=== PATIENT | female | born 1940 | race Caucasian/White ===

== ENCOUNTER 2018-08-14 17:03 | Emergency (ER) | payer BC ==
[2018-08-14 17:26] VITALS: BP 118/81; PULSE 98; TEMP 97.4; BMI 23.4
--- NOTE | 2018-08-14 17:37 | PDOC ---
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 Pt is accompanied by her daughter and family, who can give information regarding pts baseline. According to the halfway records, the pt fell at 1:30 AM from the bed onto the floor, and the fall was unwitnessed. The pt does not remember the fall. The pts daughter was called at 5:30 AM, and halfway staff allegedly told the pts daughter that a full neuro exam was done and that the pt "is fine". Pt was sent to the ER around 5:00 PM today, due to agitation and "wanting to go outside". Pt is unreliable historian for ROS. Remote history of smoking. Pt denies any alcohol or drug use. Pt denies any recent travel or sick contacts. Surgical: no relevant history. Family: no relevant history. 08/14/18 19:16 Past History - Travel Traveled outside of the country in the last 30 days: No Close contact w/someone who was outside of country & ill: No - Past Medical History Allergies/Adverse Reactions: Allergies Allergy/AdvReac Type Severity Reaction Status Date / Time No Known Allergies Allergy Verified 08/14/18 17:26 Home Medications: Ambulatory Orders Acetaminophen [Tylenol] 650 mg PO QID PRN 08/14/18 Apixaban [Eliquis -] 5 mg PO BID 08/14/18 Polyethylene Glycol 3350 [Miralax (For Bowel Prep) -] 17 gm PO DAILY PRN Quetiapine Fumarate [Seroquel -] 12.5 mg PO HS 08/14/18 Silver Sulfadiazine 1% Top Cr [Silvadene -] 1 applic TP DAILY 08/14/18 COPD: Yes DVT: Yes (PE/DVT) Dementia: Yes HTN: No Hypercholesterolemia: No Psychiatric Problems: Yes (depression, anxiety) Other medical history: P.E., DVT LLE - Suicide/Smoking/Psychosocial Hx Smoking History: Former smoker Have you smoked in the past 12 months: No Information on smoking cessation initiated: No Review of Systems - Review of Systems Able to Perform ROS?: No (dementia, unreliable) Is the patient limited Maltese proficient: Yes *Physical Exam - Vital Signs Last Vital Signs Temp Pulse Resp BP Pulse Ox 97.4 F L 98 H 20 118/81 96 08/14/18 17:14 08/14/18 17:14 08/14/18 17:14 08/14/18 17:14 08/14/18 17:14 - Physical Exam General Appearance: Yes: Nourished, Appropriately Dressed. No: Apparent Distress HEENT: positive: EOMI, BIJAN, Normal ENT Inspection, Normal Voice, Pharynx Normal , Hearing Grossly Normal. negative: Scleral Icterus (R), Scleral Icterus (L), Pharyngeal Erythema, Tonsillar Exudate, Tonsillar Erythema, Nasal Congestion, Rhinorrhea Neck: positive: Trachea midline, Normal Thyroid, Supple. negative: Tender, Rigid, Decreased range of motion, Lymphadenopathy (R), Lymphadenopathy (L) Respiratory/Chest: positive: Lungs Clear, Normal Breath Sounds. negative: Chest Tender, Respiratory Distress, Accessory Muscle Use, Crackles, Wheezing Cardiovascular: positive: Regular Rhythm, Regular Rate, S1, S2. negative: Edema , JVD, Murmur Vascular Pulses: Carotid (R): 4+, Carotid (L): 4+ Gastrointestinal/Abdominal: positive: Normal Bowel Sounds, Flat, Soft. negative : Tender, Organomegaly, Pulsatile Mass, Distended, Guarding, Rebound Rectal Exam: positive: deferred Lymphatic: negative: Adenopathy, Tenderness Musculoskeletal: positive: Normal Inspection. negative: CVA Tenderness, Vertebral Tenderness Extremity: positive: Normal Capillary Refill, Normal Inspection, Pelvis Stable. negative: Normal Range of Motion (contracture of R hand, weakness of R leg ( chronic for pt)), Tender, Pedal Edema Integumentary: positive: Normal Color, Dry, Warm, Swelling (mild edema dorsum of R hand). negative: Jaundice, Clammy, Diaphoresis, Ecchymosis, Bruising Neurologic: positive: can line examiner II-XII NML intact, Alert, Normal Response, Motor Strength 5/5. negative: Fully Oriented (oriented to person and place only), Normal Mood/Affect (pt slightly agitated), EOM Palsy, Facial Droop, Numbness, Sensory Deficit, Finger to Nose Moderate Sedation - Procedure Monitoring Vital Signs: Procedure Monitoring Vital Signs Temperature 97.4 F L 08/14/18 17:14 Pulse Rate 98 H 08/14/18 17:14 Respiratory Rate 20 08/14/18 17:14 Blood Pressure 118/81 08/14/18 17:14 O2 Sat by Pulse Oximetry (%) 96 08/14/18 17:14 ED Treatment Course - LABORATORY CBC & Chemistry Diagram: 08/14/18 18:29 08/14/18 18:29 Medical Decision Making - Medical Decision Making Pt was seen at bedside, also will be seen by attending Dr. Aiken. Pt presenting from [facility] via EMS after a fall this morning at 1:30 AM. Pt is accompanied by her daughter and family, who can give information regarding pts baseline. According to the halfway records, the pt fell at 1:30 AM from the bed onto the floor, and the fall was unwitnessed. The pt does not remember the fall. The pts daughter was called at 5:30 AM, and halfway staff allegedly told the pts daughter that a full neuro exam was done and that the pt "is fine". Pt was sent to the ER around 5:00 PM today, due to agitation and "wanting to go outside ". Pt is unreliable historian for ROS. Pt afebrile, vitals stable. Pt A/O only to person and place. PE showed can line examiner intact, contracture and weakness of RUE/R hand and weakness in R leg (chronic for pt). Other muscular strength and sensation intact. No midline spinal or cervical neck tenderness. Mild edema and tenderness over the dorsum of the R hand. Heart and lung sounds clear. No abdominal tenderness. No b/l pitting edema , no JVD, no murmur. Considering mechanical fall with r/o head bleed/subdural/epidural hematoma (pt on eliquis) vs precipitating factors for fall (infectious/UTI vs ACS). Not as concerned for additional PE as pt on Eliquis and is saturating 96% on RA, not tachycardic. Ordered work-up including CBC, CMP, cardiac profile, type and screen, PT/INR, UA , chest x-ray, x-ray R hand/wrist, and non-contrast Head and C-spine CT. Will continue to reassess pt and monitor for symptomatic improvement. 08/14/18 18:00 Labs sent and pending. Pt taken for CT scan. 08/14/18 18:59 CBC WNL. 08/14/18 19:14 INR 1.40. 08/14/18 19:19 CMP WNL. Trop <.02 ECG: HR 84, normal intervals. LAD (downward in inferior leads -- L anterior fascicular block). No significant ST segment changes. 08/14/18 19:37 Chest x-ray: no acute pathology R hand/wrist x-ray: degenerative change/arthritis, no acute fracture noted. Ordering x-ray of R knee, as pt has limited ROM on exam and is now stating there is pain there. 08/14/18 19:53 CT head and neck shows chronic changes, no acute pathology. 08/14/18 20:23 X-ray of R knee showed degenerative changes, no acute fracture. Considering normal lab results and imaging, pt can be discharged to [facility] with follow-up. Pt advised to follow-up with PCP in 1-2 days. Strict return precautions provided with family's understanding. 08/14/18 21:54 *DC/Admit/Observation/Transfer Diagnosis at time of Disposition: Fall Qualifiers: Encounter type: initial encounter Qualified Code(s): W19.XXXA - Unspecified fall, initial encounter - Discharge Dispostion Disposition: [facility] Condition at time of disposition: Good Decision to Admit order: No - Referrals Referrals: Brock Carrillo MD [Staff Physician] - - Patient Instructions Printed Discharge Instructions: How to Prevent Falls Additional Instructions: You were seen in the ER today after a fall. The results of your labs and imaging today were normal. Please follow-up with your primary care doctor (Dr. Carrillo) and your neurologist (Dr. Baca) within 1-2 days to discuss your visit and make sure your symptoms have improved. Please return to the ER if you have any worsening pain, confusion or changes in behavior, development of fevers or chills, loss of consciousness, inability to tolerate food or fluids, or any other concerns. - Post Discharge Activity
--- NOTE | 2018-08-14 18:28 | PDOC ---
Attending Attestation - Resident Resident Name: Amina Woods - ED Attending Attestation I have performed the following: I have examined & evaluated the patient, The case was reviewed & discussed with the resident, I agree w/resident's findings & plan, Exceptions are as noted - HPI HPI: 08/14/18 19:55 The patient is a 78 year old female with a significant past medical history of CBGD with dementia, depression COPD, PE/DVT on eliquis who presents to the emergency department via EMS from [facility] for an witnessed fall from bed. As per ems, the patient was at [place] earlier this morning when she experienced a fall at around 1:30am this morning. The patient reports that she is not sure of how exactly she fell. The patient reports some associated right hand pain and swelling. It is noted that the patient is not ambulatory but, she is verbal. She denies any other symptoms or complaints at time of exam. Pt denies any cp,sob, palpitations, headache,neck pain, back pain, n/v, cough, fever/chills. pt accompanied by family who staets the pt is at her baseline mental status - she typically ownsin the evenings and her symptoms is consistent with her episodes. - Physicial Exam PE: 08/14/18 20:10 GENERAL: The patient is awake, alert, HEAD: Normocephalic, atraumatic. EYES: extraocular movements intact, sclera anicteric, conjunctiva clear. ENT: Normal voice, Moist mucous membranes. NECK: Normal range of motion, supple BACK: No focal bony tenderness in cervical/thoracic/lumbar spine, no paraspainal tenderness LUNGS: wheezing bilaterally, moderate respiraotry distress HEART: Regular rate and rhythm, normal S1 and S2 without murmur, rub or gallop. ABDOMEN: Soft, nontender, No guarding, no rebound. No CVA tenderness EXTREMITIES: ROM of RUE, RLE limited due to her chronic disease, mild edema of her R wrist that is midlly ttp, no focal bony tenderness otherwise, normal rom and no focal ttp to her LLE, LUE NEUROLOGICAL: No facial assymetry, Normal speech PSYCH: Normal mood, normal affect. SKIN: Warm, Dry, normal turgor, - Medical Decision Making 08/14/18 18:23 78y F on eliquis presents sp unwitnessed fall during over night hours and found to be altered per NH staff, but per patients family she typically sun downs and she is at baseline. xray to r/o fx will ck ct head as pt is on eliquis, no obvious head truama labs tor /o metabolic derangement exam at baseline mental status at baseiln per shivani if workup neg will dc back to NH
[2018-08-14 18:52] LABS: BASO % 0.4 % (0-2.0); EOS % 4.4 % (0-4.5); HEMATOCRIT 40.6 % (32.4-45.2); HEMOGLOBIN 14.1 GM/dL (10.7-15.3); LYMPH % 23.3 % (8-40); MCH 30.2 pg (25.7-33.7); MCHC 34.8 g/dl (32.0-36.0); MEAN CELL VOLUME 86.9 fl (80-96); MEAN PLT VOLUME 7.9 fl (7.5-11.1); MONO % 5.5 % (3.8-10.2); NEUT % 66.4 % (42.8-82.8); PLATELET COUNT 337 K/MM3 (134-434); RBC 4.67 M/mm3 (3.60-5.2); RDW 13.3 % (11.6-15.6); WHITE BLOOD COUNT 8.4 K/mm3 (4.0-10.0)
[2018-08-14 19:17] LABS: INR 1.4 (0.83-1.09); PROTHROMBIN TIME (PATIENT) 16.6 SEC (9.7-13.0)
[2018-08-14 19:24] LABS: ALBUMIN 3.4 g/dl (3.4-5.0); ALK PHOS 92 U/L (45-117); ANION GAP 8 MMOL/L (8-16); BILIRUBIN,TOTAL 0.4 mg/dL (0.2-1); BLOOD UREA NITROGEN 16 mg/dL (7-18); CALCIUM 9.2 mg/dL (8.5-10.1); CHLORIDE 105 mmol/L (98-107); CO2 29 mmol/L (21-32); CREATININE 0.7 mg/dL (0.55-1.3); GLUCOSE,RANDOM 88 mg/dL (74-106); POTASSIUM 4.1 mmol/L (3.5-5.1); SGOT/AST 12 U/L (15-37); SGPT/ALT 16 U/L (13-61); SODIUM 142 mmol/L (136-145); TOT PROT 6.8 g/dl (6.4-8.2)
--- NOTE | 2018-08-15 13:06 | EKG ---
Test Reason : Blood Pressure : / mmHG Vent. 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
== END 2018-08-14 22:43 ==
LOC: JER 17:03
DX: M25.561 Pain in right knee (principal); W06.XXXA Fall from bed, initial encounter; Y93.89 Activity, other specified; Y92.122 Bedroom in nursing home as the place of occurrence of the external cause; Y99.8 Other external cause status; Z86.718 Personal history of other venous thrombosis and embolism; Z86.711 Personal history of pulmonary embolism; Z79.01 Long term (current) use of anticoagulants; F41.8 Other specified anxiety disorders; J44.9 Chronic obstructive pulmonary disease, unspecified; G31.85 Corticobasal degeneration; F02.80 Dementia in other diseases classified elsewhere, unspecified severity, without behavioral disturbance, psychotic disturbance, mood disturbance, and anxiety
CPT/HCPCS: 36415; 70450-TC; 71045-TC-FY; 72125-TC; 73110-TC-RT-FY; 73130-TC-RT-FY; 73562-TC-RT-FY; 80053; 82550; 84484; 85025; 85610; 93005; 93010; 99282-25